=== PATIENT | male | born 1955 | race Caucasian/White ===

== ENCOUNTER → 2017-11-01 14:30 | Outpatient (CLI) | payer OTHER, SELFPAY ==
[2017-11-01 15:51] LABS: Anion Gap 9 (5-15); BUN 23 mg/dL (7-18); BUN/Creat Ratio 22.8 RATIO (10-20); Calcium,Total 9.5 mg/dL (8.5-10.1); Chloride 106 mmol/L (98-107); Creatinine, Serum 1.01 mg/dL (0.70-1.30); EST Glomerular Filtration Rate 79 mL/min (>60); Est Glom Filt Rate - Afr Amer 96 mL/min (>60); Glucose 145 mg/dL (74-106); Potassium 3.2 mmol/L (3.5-5.1); Sodium Level 142 mmol/L (136-145)
== END ==
PROVIDERS: Visit Provider Family Medicine
DX: I10 Essential (primary) hypertension (principal)
CPT/HCPCS: 36415; 80048

== ENCOUNTER → 2017-12-06 14:25 | Outpatient (CLI) | payer OTHER, SELFPAY ==
[2017-12-06 16:06] LABS: Anion Gap 8 (5-15); BUN 19 mg/dL (7-18); Calcium,Total 8.9 mg/dL (8.5-10.1); Chloride 107 mmol/L (98-107); EST Glomerular Filtration Rate 80 mL/min (>60); Est Glom Filt Rate - Afr Amer 97 mL/min (>60); Glucose 95 mg/dL (74-106); Potassium 3.7 mmol/L (3.5-5.1); Sodium Level 144 mmol/L (136-145)
== END ==
PROVIDERS: Family Provider Family Medicine; PCP Family Medicine; Visit Provider Family Medicine
DX: I10 Essential (primary) hypertension (principal)
CPT/HCPCS: 36415; 80048

== ENCOUNTER → 2018-05-09 11:04 | Outpatient (CLI) | payer OTHER, SELFPAY ==
[2018-05-09 12:26] LABS: Anion Gap 10 (5-15); BUN 16 mg/dL (7-18); BUN/Creat Ratio 20.3 RATIO (10-20); Calcium,Total 9.1 mg/dL (8.5-10.1); Chloride 106 mmol/L (98-107); Creatinine, Serum 0.79 mg/dL (0.70-1.30); EST Glomerular Filtration Rate 105 mL/min (>60); Est Glom Filt Rate - Afr Amer 127 mL/min (>60); Glucose 95 mg/dL (74-106); Potassium 4.1 mmol/L (3.5-5.1); Sodium Level 141 mmol/L (136-145)
== END ==
PROVIDERS: Family Provider Family Medicine; PCP Family Medicine; Visit Provider Family Medicine
DX: I10 Essential (primary) hypertension (principal)
CPT/HCPCS: 36415; 80048

== ENCOUNTER → 2018-11-06 15:16 | Outpatient (CLI) | payer OTHER, SELFPAY ==
[2018-11-06 17:48] LABS: Anion Gap 10 (5-15); BUN 22 mg/dL (7-18); BUN/Creat Ratio 17.3 RATIO (10-20); Calcium,Total 9.7 mg/dL (8.5-10.1); Chloride 108 mmol/L (98-107); Creatinine, Serum 1.27 mg/dL (0.70-1.30); EST Glomerular Filtration Rate 61 mL/min (>60); Est Glom Filt Rate - Afr Amer 73 mL/min (>60); Glucose 107 mg/dL (74-106); Potassium 3.6 mmol/L (3.5-5.1); Sodium Level 144 mmol/L (136-145)
== END ==
PROVIDERS: Family Provider Family Medicine; PCP Family Medicine; Visit Provider Family Medicine
DX: I10 Essential (primary) hypertension (principal)
CPT/HCPCS: 36415; 80048

== ENCOUNTER → 2019-05-08 10:23 | Outpatient (CLI) | payer OTHER, SELFPAY ==
[2019-05-08 12:48] LABS: Anion Gap 6 (5-15); BUN 19 mg/dL (7-18); BUN/Creat Ratio 20.5 RATIO (10-20); Calcium,Total 9.1 mg/dL (8.5-10.1); Chloride 109 mmol/L (98-107); Creatinine, Serum 0.92 mg/dL (0.70-1.30); EST Glomerular Filtration Rate 87 mL/min (>60); Est Glom Filt Rate - Afr Amer 106 mL/min (>60); Glucose 116 mg/dL (74-106); Potassium 3.9 mmol/L (3.5-5.1); Sodium Level 140 mmol/L (136-145)
== END ==
PROVIDERS: Family Provider Family Medicine; PCP Family Medicine; Referring Provider Family Medicine; Visit Provider Family Medicine
DX: I10 Essential (primary) hypertension (principal)
CPT/HCPCS: 36415; 80048

== ENCOUNTER → 2019-11-26 11:33 | Outpatient (CLI) | payer MEDICARE, SELFPAY ==
[2019-11-26 15:19] LABS: Anion Gap 5 (5-15); BUN 19 mg/dL (7-18); BUN/Creat Ratio 21.6 RATIO (10-20); Calcium,Total 9.2 mg/dL (8.5-10.1); Chloride 108 mmol/L (98-107); Cholesterol 227 mg/dL (200); Creatinine, Serum 0.88 mg/dL (0.70-1.30); EST Glomerular Filtration Rate 92 mL/min (>60); Est Glom Filt Rate - Afr Amer 112 mL/min (>60); Glucose 100 mg/dL (74-106); High Density Lipoprotein 80 mg/dL; Sodium Level 139 mmol/L (136-145); Triglycerides 90 mg/dL; Very Low Density Lipoprotein 18 mg/dL (5-40)
== END ==
PROVIDERS: PCP Family Medicine; Referring Provider Family Medicine; Visit Provider Family Medicine
DX: I10 Essential (primary) hypertension (principal)
CPT/HCPCS: 36415; 80048; 80061

== ENCOUNTER → 2020-10-03 08:02 | Outpatient (CLI) | payer MEDICARE, SELFPAY ==
--- NOTE | 2020-10-03 08:03 | US_ITS ---
STUDY: SUPERFICIAL ULTRASOUND - LEFT POPLITEAL FOSSA. REASON FOR EXAM: Male, 65 years old. Painfull mass of the posterior left knee TECHNIQUE: A superficial ultrasound was performed with real-time and static pearson-scale imaging. COMPARISON: None. FINDINGS: The palpable abnormality corresponds to a 4.2 cm x 3.8 cm x 3 cm cyst suggestive of a popliteal cyst. US/Ext Non Vasc Limited/Soft Tiss IMPRESSION: The palpable abnormality corresponds to a 4.2 cm x 3.8 cm x 3 cm cyst in keeping with a popliteal cyst. Electronically Signed: Edwardo Samayoa MD at 13:24 EDT , Service support ,
== END ==
PROVIDERS: PCP Family Medicine; Referring Provider Family Medicine; Visit Provider Family Medicine
DX: R22.42 Localized swelling, mass and lump, left lower limb (principal)
CPT/HCPCS: 76882

== ENCOUNTER 2021-06-16 17:01 | Outpatient (CLI) | payer MEDICARE, SELFPAY ==
--- NOTE | 2021-06-16 17:04 | RAD_ITS ---
STUDY: X-RAY - LEFT HUMERUS REASON FOR EXAM: Male, 65 years old. ARM PAIN TECHNIQUE: 2 view(s) of the humerus. COMPARISON: None. FINDINGS: There is a humeral diaphysis distal metaphyseal ovoid lesion in the middle with scalloping of the inner cortex measuring approximately 1.8 cm in length. There is no osseous destruction. There is no callus formation. Otherwise normal visualized humerus. There is no demonstrated fracture. There is no demonstrated soft tissue abnormality. RAD/Humerus min 2 Views IMPRESSION: Bone lesion as above. This may be an incidental finding, however further assessment with MRI for better detail is recommended giving symptoms. Electronically Signed: Aura Worthington MD at 4:12 EST Reading Location ID and State: , Service support ,
== END 2021-06-16 23:59 | disposition home or self-care (01) ==
LOC: MTRAD 17:02
PROVIDERS: PCP Family Medicine; Referring Provider Family Medicine; Visit Provider Family Medicine
DX: M79.602 Pain in left arm (principal)
CPT/HCPCS: 73060

== ENCOUNTER 2021-07-20 06:55 | Outpatient (CLI) | payer MEDICARE, SELFPAY ==
--- NOTE | 2021-07-20 07:00 | MRI_ITS ---
STUDY: MRI LEFT REARFOOT WITHOUT CONTRAST REASON FOR EXAM: Male, 65 years old. SUPERFICIAL F.B LEFT HEEL, LEFT HEEL PAIN TECHNIQUE: Standardized fat and water weighted pulse sequences were obtained in all 3 orthogonal planes. COMPARISON: None. FINDINGS: Normal subcutis adipose space. Normal posterior tibialis tendon. Normal flexor digitorum longus tendon. Normal flexor hallucis longus tendon. Normal peroneus longus and brevis tendons. Normal tibialis anterior tendon. Normal extensor hallucis longus tendon. Normal extensor digitorum longus tendons. Normal Achilles tendon and teno-osseous insertion. Thickening, abnormal signal, and surrounding hyperintensity of the medial aspect of the proximal plantar fascia consistent with plantar fasciitis. Focal hyperintensity near the attachment of the calcaneus consistent with developing tear. Normal plantar calcaneal tubercles. Normal intrinsic muscles of the rearfoot. Normal distal tibiofibular syndesmotic ligamentous complex. Normal lateral ligamentous complex. Normal subtalar ligaments and sinus tarsi. Normal deltoid ligamentous complexes. Normal plantar calcaneonavicular (spring) ligament. There is a joint effusion of the tibiotalar articulation with capsular distension. Normal talar dome. There is a joint effusion of the posterior subtalar articulation with capsular distension. Normal talonavicular articulation. Normal calcaneocuboid articulation. Normal navicular-cuneiform articulations. MRI/Lower Ext/No Jt/w/o IMPRESSION: Moderate plantar fasciitis with a developing tear. Electronically Signed: Teo Andre MD at 16:47 EDT ,
== END 2021-07-20 23:59 | disposition home or self-care (01) ==
LOC: MRI 06:56
PROVIDERS: PCP Family Medicine; Referring Provider Podiatrist; Visit Provider Podiatrist
DX: S90.852A Superficial foreign body, left foot, initial encounter (principal)
CPT/HCPCS: 73718

== ENCOUNTER 2021-07-24 15:56 | Outpatient (CLI) | payer MEDICARE, SELFPAY ==
--- NOTE | 2021-07-24 16:01 | MRI_ITS ---
ACR Level 3 findings have been noted. An addendum which confirms receipt of the report will follow. EXAM: MR LEFT UPPER EXTREMITY WITHOUT AND WITH INTRAVENOUS CONTRAST, HUMERUS CLINICAL INDICATION: Bone lesion TECHNIQUE: Multiplanar and multisequence MR images of the left humerus without and with intravenous contrast. This report was created using [employer] report [employer] technology. CONTRAST: IV 19 CC DOTAREM COMPARISON: None. FINDINGS: Previously noted lytic lesion involving the humeral shaft seen on recent humeral radiography is not as conspicuous on MRI with no significant signal alteration involving the humeral shaft. Muscles and neurovascular structures are unremarkable. No other soft tissue or osseous masses. Fluid in the subacromial/subdeltoid bursa is concerning for bursitis. MRI/Upper Ext No Joint W/WO Cont IMPRESSION: Previously noted lytic lesion involving the humeral shaft seen on recent humeral radiography is not as conspicuous on MRI with no significant signal alteration involving the humeral shaft. Recommend a follow-up nonemergent CT and bone scan for further investigation. Electronically Signed: Mann Carbajal MD at 0:26 EDT ,
[2021-07-24 16:11] LABS: CREATININE FINGERSTICK 0.9 mg/dL (0.70-1.30); EGFR FINGERSTICK > 60.0000 mL/min (>60)
--- NOTE | 2021-07-25 00:32 | ED.RN ---
gay had called with a critical finding, asked if we received the report for the patient. checked the patient chart to see if we received the report
== END 2021-07-24 23:59 | disposition home or self-care (01) ==
LOC: MRI 15:57
PROVIDERS: PCP Family Medicine; Visit Provider Family Medicine
DX: M89.9 Disorder of bone, unspecified (principal)
CPT/HCPCS: 73220; A9575

== ENCOUNTER 2021-08-26 08:53 | Outpatient (RCR) | payer MEDICARE, SELFPAY ==
--- NOTE | 2021-08-26 10:13 | HP.PTEVAL_ITS ---
Patient's Visit Information CARMEN DIAZ is a 65 year old M referred to Physical Therapy by Dr. Dory Pendleton MD with a diagnosis of bone lesion. Date of Evaluation: 08/26/21 Physical Therapist: Mitch Lee, PT, ATC - Visit Plan Frequency: 1x/Week Duration: 1 Week Plan: Pt has excellent ROM and strength at this time. Skilled PT is not necessary. Pt will continue to exercise I at this time and follow up or discharge in one month. - Subjective Pt reports he had a flu and covid vaccine 6 months ago and has had L arm pain since. Pt reports he has had x-rays and an MRI of the region that revealed no significant findings. Pt denies L shoulder pain at this time. Pt notes he is unable to push himself up off of the floor with his L UE secondary to pain. Pt is R hand dominant. No tingling or numbness in L UE at this time. Pt reports he is able to sleep at night, but notes he is taking pain meds what may be helping him. No PMHx. Pt reports he is able to lift his arm, but notes the initial first attempt of the movement increases his pain. 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 0/10 pain at rest, 4/10 pain at worst (trying to push up off the ground) - Pain L shoulder Pain Intensity (Out of 10): 0 Pain Intensity Range: 4 - Objective Neuro: B UE sensation is WNL to light touch. B bicipital reflex= 2/3. Palpation: Pt is sore on the ant/superior region of the L humerus. No deformity noted at this time. ROM: B UE's are WFL and equal compared bilaterally. MMT: B UE's are rated at 5/5 throughout. Special tests: all negative at this time - Balance/Special Test Scores Quick DASH Score: 20.4525 - Goals Goal 1:: N/A - Rehabilitation Potential Physical Therapy Diagnosis: Pt has L UE pain secondary to a bone lesion Rehabilitation Potential: Good - Anticipated Interventions Patient/Client Instruction: Educate patient on: Condition, Plan of Care For the Purpose of:: To improve self management Therapeutic Exercise to Include: Strength training, Scapular Strength/Stabilization For the Purpose of:: To decrease pain, To improve muscle performance and motor function Thank you for the opportunity to evaluate your patient. For Medicare and Medicare HMO plans, please review the plan of care and approve it. It will need to be FAXED BACK to us at [phone] for Medicare purposes. For Medicare only, by signing this I certify the plan of care. Please let me know if there are questions or concerns regarding this plan of care. Physician Signature: Date:
--- NOTE | 2021-10-14 13:00 | HP.PT.NRP ---
CARMEN DIAZ was seen in my office for initial evaluation on 08/26/21. The following Plan of Care was established for this patient: Initial Frequency: 1x/Week Initial Duration: 1 Week Patient/Client Instruction: Educate patient on: Condition, Plan of Care For the Purpose of:: To improve self management Therapeutic Exercise to Include: Strength training, Scapular Strength/Stabilization For the Purpose of:: To decrease pain, To improve muscle performance and motor function This patient was last seen in our office . Pertinent comments regarding their Physical therapy will appear below: Pt was evaluated for L shoulder pain on the date of 08/26/21. Pt has not returned through this date and is discontinued at this time. At this point I will be discontinuing this patient from physical therapy. I would be happy to see this patient again in the future if found appropriate by the physician. Thank you! Mitch Lee, PT, ATC Balance/Gait/Functional tests - Balance/Special Test Scores Quick DASH Score: 20.4590
== END 2021-08-26 19:00 | disposition home or self-care (01) ==
LOC: PT 08:53
PROVIDERS: PCP Family Medicine; Referring Provider Family Medicine; Visit Provider Family Medicine
DX: M89.9 Disorder of bone, unspecified (principal)
CPT/HCPCS: 97161